=== PATIENT | male | born 1945 | race Caucasian/White ===

== ENCOUNTER 2021-04-21 10:32 | Emergency (ER) | payer MEDICARE, BC ==
[~2021-04-21] VITALS: Ht 177.8 cm; Wt 104.5 kg
[2021-04-21] MEDS ORDERED: VIT1CAPS42 PO (11:13)
[2021-04-21] MEDS ORDERED: LEVE750T37 PO (11:13)
[2021-04-21] MEDS ORDERED: LISI-170 PO (11:13)
[2021-04-21] MEDS ORDERED: ACET325T14 PO (11:13)
[2021-04-21] MEDS ORDERED: CHOL10003 PO (11:13)
[2021-04-21] MEDS ORDERED: WARF4TAB65 PO (11:13)
[2021-04-21] MEDS ORDERED: MIRT30TA97 PO (11:13)
[2021-04-21] MEDS ORDERED: ATOR20TA37 PO (11:13)
[2021-04-21 12:57] LABS: BASOPHILS % (AUTO) 1 % (0-1); EOSINOPHILS % (AUTO) 1 % (1-7); LYMPHOCYTES % (AUTO) 23 % (22-44); MEAN CORPUSCULAR HEMOGLOBIN 30.5 pg (27.5-34.5); MEAN CORPUSCULAR HGB CONC 33.8 g/dL (33.2-36.2); MONOCYTES % (AUTO) 11 % (2-9); NEUTROPHILS % (AUTO) 64 % (42-75); PLATELET COUNT 137 x10^3/uL (130-400); RED BLOOD COUNT 4.38 x10^6/uL (4.38-5.82); RED CELL DISTRIBUTION WIDTH 14.6 % (9.4-14.8)
[2021-04-21] MEDS ORDERED: ONDANSETRON ODT 4 MG PO ONE (13:00)
[2021-04-21 13:01] LABS: ALBUMIN 3.1 g/dL (3.4-5.0); ANION GAP 6 mmol/L (5-15); CALCIUM 7.5 mg/dL (8.5-10.1); CHLORIDE 113 mmol/L (98-107)
[2021-04-21 13:08] LABS: ALANINE AMINOTRANSFERASE 33 U/L (12-78); ALKALINE PHOSPHATASE 65 U/L (45-117); BILIRUBIN,TOTAL 0.6 mg/dL (0.2-1.0); CREATININE 0.89 mg/dL (0.7-1.3); TROPONIN I < 0.015 ng/mL (0.000-0.045)
[2021-04-21 13:14] LABS: MICROSCOPIC NOT IND
[2021-04-21 13:23] LABS: INTERNATIONAL NORMALIZED RATIO 1.91 (0.93-1.1); PROTHROMBIN TIME 19.8 Seconds (9.6-11.5)
[2021-04-21 14:19] VITALS: BP 123/68
== END 2021-04-21 14:23 | disposition home or self-care (01) ==
LOC: ED 11:52
DX: R53.1 Weakness (principal); R25.1 Tremor, unspecified; E78.5 Hyperlipidemia, unspecified; I10 Essential (primary) hypertension; I25.10 Atherosclerotic heart disease of native coronary artery without angina pectoris; Z86.73 Personal history of transient ischemic attack (TIA), and cerebral infarction without residual deficits; Z86.718 Personal history of other venous thrombosis and embolism; E66.9 Obesity, unspecified; Z68.33 Body mass index [BMI] 33.0-33.9, adult
CPT/HCPCS: 36415; 70450; 80053; 81003; 84484; 85025; 85610; 93005; 99285